=== PATIENT | female | born 1985 | race Hispanic/Latino ===

== ENCOUNTER 2021-01-16 16:10 | Observation (INO) | payer SELFPAY ==
--- NOTE | 2021-01-16 16:30 | OBADM ---
This patient, Hanane Avendano, admitted to the OB room [facility] Post [facility] for observation. Patient/family oriented to hospital policies and general routines including ID bracelet, bed and alarms, visiting hours, pain management, procedures, bathroom and other care routines, personal items, smoking policy, room service/diet, and visiting hours. Patient/Family are encouraged to report perceived risks to care and to ask questions if they do not understand what they are told or what they should do.
[2021-01-16 17:25] LABS: Hemoglobin 12.6 g/dL (12.0-15.0); Mean Corpuscular HGB Conc 33.2 g/dl (32-36); Mean Corpuscular Hemoglobin 29.5 pg (26-34); Platelet Count Result 289 k/mm3 (150-375); Red Blood Count 4.27 M/mm3 (4.2-5.4); Red Cell Distribution Width 11.9 % (11.5-14.5); White Blood Count 11.1 K/mm3 (4.5-10.0)
[2021-01-16 17:39] LABS: Alanine Aminotransferase 173 U/L (4-35); Albumin Level 4.3 g/dL (3.5-5.1); Alkaline Phosphatase 105 U/L (38-126); Anion Gap 15 mmol/L (8-16); Aspartate Amino Transferase 88 U/L (14-36); Blood Urea Nitrogen 12 mg/dL (7-17); Calcium 9.3 mg/dL (8.4-10.2); Carbon Dioxide 16 mmol/L (22-30); Chloride 107 mmol/L (98-107); Estimated Glomerular Filt Rate > 60; Glucose 73 mg/dL (65-105); Potassium 4.3 mmol/L (3.4-5.0); Sodium 138 mmol/L (137-145)
[2021-01-16] MEDS: DEXTROSE 5%/LACTATED RINGERS 1,000 ML 999 ML IV CONT ×4 (17:45→21:03)
[2021-01-16 17:46] VITALS: BP 98/58; PULSE 60
[2021-01-16] MEDS: ONDANSETRON INJ 4 MG/2 ML VIAL IV PUSH ×2 (17:46→23:41)
[2021-01-16] MEDS: FAMOTIDINE 20 MG/2 ML VIAL IV PUSH (17:46)
[2021-01-16 18:17] VITALS: BP 89/40; PULSE 127; PULSE 58; PULSE 63; O2SAT 85; O2SAT 91
[2021-01-16 18:18] VITALS: BP 95/52; PULSE 60
[2021-01-16 19:04] VITALS: PULSE 62; O2SAT 98
[2021-01-16 19:16] VITALS: RESP 16; TEMP 36.6
[2021-01-16 20:01] VITALS: BMI 27.3
[2021-01-16] MEDS: METOCLOPRAMIDE HCL INJ 10 MG/2 ML VIAL IV PUSH (22:00)
[2021-01-16] MEDS: DEXTROSE 5%/LACTATED RINGERS 1,000 ML 125 ML IV CONT (22:28)
[2021-01-17 06:38] VITALS: BP 79/42; PULSE 57
[2021-01-17] MEDS: DEXTROSE 5%/LACTATED RINGERS 1,000 ML 125 ML IV CONT (06:39)
[2021-01-17] MEDS: FAMOTIDINE 20 MG/2 ML VIAL IV PUSH (06:42)
[2021-01-17 06:45] VITALS: BP 81/43; PULSE 55; TEMP 36.6
[2021-01-17] MEDS: METOCLOPRAMIDE HCL INJ 10 MG/2 ML VIAL IV PUSH (06:45)
--- NOTE | 2021-01-17 06:45 | PC.NURSE ---
Pt has had some juice and bite size cookies.
--- NOTE | 2021-01-17 08:55 | PC.NURSE ---
Dr. Donovan at bedside. Assessment performed. Plan of care discussed with patient. Discharge orders received.
--- NOTE | 2021-01-17 08:58 | PC.NURSE ---
Dr. Donovan has been in to see pt and discharge orders received.
--- NOTE | 2021-01-17 08:59 | PM.OBTRLD ---
OB - Triage/Final Diagnosis Visit Information Date of evaluation: 01/16/21 Comments/Additional reasons for admission: I have assessed the risk for this patient, Hanane Avendano, and determined that she would benefit from observation care. 35-year-old sent in for hyperemesis gravidarum IV fluids antiemetic therapy Evaluation Laboratory results: Laboratory Tests 01/16/21 01/16/21 17:20 17:20 WBC 11.1 H RBC 4.27 Hgb 12.6 Hct 38.0 MCV 89.0 MCH 29.5 MCHC 33.2 RDW 11.9 Plt Count 289 MPV 10.0 Sodium 138 Potassium 4.3 Chloride 107 Carbon Dioxide 16 L Anion Gap 15 BUN 12 Creatinine 0.50 L Estim Creat Clear Calc Not Reportable Estimated GFR > 60 Glucose 73 Calcium 9.3 Total Bilirubin 1.0 AST 88 H ALT 173 H Alkaline Phosphatase 105 Total Protein 8.0 Albumin 4.3 Vital signs: Vital Signs - 24 hr 01/16/21 17:46 01/16/21 18:17 01/16/21 18:18 Temperature Pulse Rate 60 63 60 Respiratory Rate Blood Pressure 98/58 L 89/40 L 95/52 L Pulse Oximetry 91 01/16/21 19:04 01/16/21 19:16 01/17/21 06:38 Temperature 97.9 F Pulse Rate 62 57 L Respiratory Rate 16 Blood Pressure 79/42 L Pulse Oximetry 98 01/17/21 06:45 Temperature Pulse Rate 55 L Respiratory Rate Blood Pressure 81/43 L Pulse Oximetry Final Diagnosis (1) Hyperemesis gravidarum: Code(s): O21.0 - Mild hyperemesis gravidarum Status: Acute
--- NOTE | 2021-01-17 09:05 | PC.NURSE ---
Discharge instructions reviewed with patient and , patient and state understanding of instructions.
== END 2021-01-17 09:12 | disposition home or self-care (01) ==
PROVIDERS: Admitting Provider Obstetrics & Gynecology; Visit Provider Obstetrics & Gynecology
DX: O21.0 Mild hyperemesis gravidarum (principal); Z3A.01 Less than 8 weeks gestation of pregnancy
CPT/HCPCS: 36415; 80053; 85027; 96361; 96374; 96375; 96376; G0378; G0379; J2405; J2765; J7121

== ENCOUNTER 2021-01-24 16:36 | Observation (INO) | payer SELFPAY ==
[2021-01-24] MEDS: METOCLOPRAMIDE HCL INJ 10 MG/2 ML VIAL IV PUSH (17:29)
[2021-01-24] MEDS: DEXTROSE 5%/LACTATED RINGERS 1,000 ML 999 ML IV CONT (17:30)
[2021-01-24] MEDS: SCOPOLAMINE 1.5 MG PATCH TRANSDERM (17:31)
[2021-01-24 17:43] VITALS: BP 114/67; PULSE 80
[2021-01-24 17:45] VITALS: BP 120/73; PULSE 76
[2021-01-24 18:03] VITALS: BMI 27.5
--- NOTE | 2021-01-24 18:11 | OBADM ---
This patient, Hanane Avendano, admitted to the OB room [facility] for observation. Patient/family oriented to hospital policies and general routines including ID bracelet, bed and alarms, visiting hours, pain management, procedures, bathroom and other care routines, personal items, smoking policy, room service/diet, and visiting hours. Patient/Family are encouraged to report perceived risks to care and to ask questions if they do not understand what they are told or what they should do.
--- NOTE | 2021-01-24 18:35 | PC.NURSE ---
Pt denies nausea and vomiting at this time. pt stating she wants to go home. pt drinking and tolerating water at this time.
[2021-01-24] MEDS: FAMOTIDINE 20 MG/2 ML VIAL IV PUSH (18:46)
--- NOTE | 2021-01-29 18:23 | PM.OBTRLD ---
OB - Triage/Final Diagnosis Visit Information Comments/Additional reasons for admission: I have assessed the risk for this patient, Hanane Martinez Juan Alberto, and determined that she would benefit from observation care. Final Diagnosis (1) Hyperemesis gravidarum: Code(s): O21.0 - Mild hyperemesis gravidarum Status: Acute
== END 2021-01-24 19:05 | disposition home or self-care (01) ==
PROVIDERS: Admitting Provider Obstetrics & Gynecology; Visit Provider Obstetrics & Gynecology
DX: O21.0 Mild hyperemesis gravidarum (principal); Z3A.08 8 weeks gestation of pregnancy
CPT/HCPCS: 96361; 96374; 96375; A9270; G0378; G0379; J2765; J7121

== ENCOUNTER 2021-02-18 02:31 | Emergency (ER) | payer MEDICAID, SELFPAY ==
[2021-02-18 02:43] VITALS: BP 101/69; PULSE 92; RESP 20; TEMP 36.8; O2SAT 100
[2021-02-18 04:01] LABS: Basophils Percent Auto 0.3 % (0.2-1.2); Hematocrit 36.8 % (37.0-47.0); Hemoglobin 12.4 g/dL (12.0-15.0); Immature Granulocyte Absolute 0.06 K/mm3 (0.00-0.031); Immature Granulocyte Percent A 0.4 % (0-0.5); Lymphocytes Absolute Auto 0.71 K/mm3 (0.9-3.2); Lymphocytes Percent Auto 4.6 % (18.3-44.2); Mean Corpuscular HGB Conc 33.7 g/dl (32-36); Mean Corpuscular Volume 86.2 fl (80-100); Mean Platelet Volume 11.1 fl (7.4-10.4); Monocytes Absolute Auto 0.4 K/mm3 (0.1-0.6); Monocytes Percent Auto 2.7 % (2.6-8.5); Neutrophils Absolute Auto 14.1 K/mm3 (1.3-6.7); Platelet Count Result 314 k/mm3 (150-375); Red Blood Count 4.27 M/mm3 (4.2-5.4); Red Cell Distribution Width 11.8 % (11.5-14.5); White Blood Count 15.3 K/mm3 (4.5-10.0)
[2021-02-18 04:11] LABS: Alanine Aminotransferase 567 U/L (4-35); Albumin Level 4.3 g/dL (3.5-5.1); Alkaline Phosphatase 200 U/L (38-126); Anion Gap 13 mmol/L (8-16); Aspartate Amino Transferase 291 U/L (14-36); Bilirubin,Total 1.1 mg/dL (0.2-1.3); Blood Urea Nitrogen 9 mg/dL (7-17); Calcium 9.9 mg/dL (8.4-10.2); Carbon Dioxide 20 mmol/L (22-30); Chloride 102 mmol/L (98-107); Estimated Glomerular Filt Rate > 60; Glucose 96 mg/dL (65-105); Lipase 85 U/L (23-300); Potassium 3.2 mmol/L (3.4-5.0); Sodium 135 mmol/L (137-145)
[2021-02-18 04:15] LABS: Add Urine Microscopic? YES; Appearance Urine Cloudy (Clear); Bilirubin Urine 1+ (Negative); Blood Urine Negative (Negative); Color Urine Amber (Yellow); Glucose Urine UA Negative (Negative); Ketones Urine 2+ mg/dL (Negative); Leukocyte Esterase Ur Trace LEU/UL (Negative); Mucus Urine Moderate /lpf; Nitrate Urine Negative (Negative); Protein Urine 1+ mg/dL (Negative); RBC Urine 0-2 /hpf (0-2); Specific Grav Ur 1.029 (1.001-1.035); Squamous Epithelial Cell Urine Moderate /hpf (Few)
--- NOTE | 2021-02-18 05:21 | ED.PREGNANCY ---
HPI - General Chief complaint: Abdominal Pain Stated complaint: Constipation Time Seen by Provider: 02/18/21 03:56 Source: patient Mode of arrival: ambulatory Limitations: language barrier (azerbaijani speaking, I used [employer] video microsoft systems engineer) History of Present Illness HPI Narrative: This is a female approximately 12 weeks GA with twins who presents for evaluation of rectal pain and constipation. She states she has not had a bowel movement in 1.5 months. She is passing flatus. She states tonight she felt the urge to have bowel movement but she could not go. She reports she developed severe rectal pain and lower abdominal pain. She took fleets enema prior to coming but she states she did not have bowel movement. She states she was given medication in ER so her pain has improved to 2/10. She also states she has been having nausea and vomiting durring this . She takes zofran at home and she reports that helps some. She was last evaluated in ER 2 weeks ago. She denies fever, chills, dysuria, hematuria, vaginal bleeding. She also notes she feels lumps on her rectum. Her OBGYN are located at [facility] Related Data Allergies Allergy/AdvReac Type Severity Reaction Status Date / Time No Known Allergies Allergy Verified 02/18/21 07:07 Review of Systems Review of Systems: All systems reviewed & are unremarkable except as noted in HPI and below Constitutional: Constitutional: Denies chills and Denies fever(s) Respiratory: Respiratory: Denies cough and Denies dyspnea Gastrointestinal: Gastrointestinal: Reports abdominal pain, Reports constipation, Reports nausea and Reports vomiting [facility] Past Medical History Medical History (Updated 02/18/21 @ 07:07 by Liseth Dunne MD) Patient denies medical problems Surgical History Surgical History (Updated 02/18/21 @ 06:57 by Liseth Dunne MD) No pertinent past surgical history Social History Social History (Updated 02/18/21 @ 06:57 by Liseth Dunne MD) Smoking status: Never smoker Gender identity (if verbalized by the patient): Female Exam Const: General: no acute distress and alert Orientation/consciousness: patient oriented x3 Eyes: Pupils: Equal, round and reactive pupils present EOM: EOMs intact bilaterally Resp: Effort & Inspection: normal respiratory effort and no retractions Auscultation: clear to auscultation bilaterally Cardio: Rate: regular rate Rhythm: regular rhythm Heart sounds: no murmurs GI: GI Palp: Yes Soft to palpation, Yes Tenderness to palpation present (GI) (suprapubic , bilateral lower quadrant), No Guarding due to palpation present (GI) and No Rigid due to palpation Auscultation: normal bowel sounds Other: hard stool in vault, external hemorrhoids present, no thrombosed Back/Spine/Pelvis: Back: no CVA tenderness Skin: General skin exam: normal color Rashes: no rashes Neuro: General: patient oriented x3, moves all extremities and CN's II-XI intact bilaterally Psych: Mental Status: mental status grossly normal Affect: normal affect Course Reevaluation(s) Reevaluation #1: Patient was able to have large bowel movement after enema. She states she feels better. She denies any abdominal pain. She no longer has abdominal tenderness on her repeat abdominal exam. Bedside US shows twin gestation with good movement HRs in 160s for both. I spoke with patient using microsoft systems engineer. She states she has appointment at [place] on Wednesday. I discussed abnormal liver and she will refrain from tylenol. Date: 02/18/21 Time: 06:59 Consultations Consultation #1: I spoke with chief resident OB carton and can supply supervisor at [facility]. She reports patient found to have transaminitis during last visit at [facility] . They thought it was due to her vomiting. She had negative viral hepatic panel. She states they will follow up with as outpatient. Patient is allow to take miralax and colace Date: 02/18/21 Time: 05:30
[2021-02-18] MEDS: ONDANSETRON INJ 4 MG/2 ML VIAL IV PUSH (05:23)
[2021-02-18] MEDS: DEXTROSE 5%/LACTATED RINGERS 1,000 ML 1000 ML IV CONT (05:23)
[2021-02-18 07:02] VITALS: BP 90/63; PULSE 94; RESP 20; O2SAT 99
[2021-02-18] MEDS: LACTATED RINGERS 1,000 ML 999 ML IV CONT (07:13)
[2021-02-18 07:32] VITALS: BP 98/61; PULSE 71; RESP 12; O2SAT 99
[2021-02-18 07:55] VITALS: BP 100/66; PULSE 81; RESP 14; O2SAT 98
== END 2021-02-18 07:58 | disposition home or self-care (01) ==
PROVIDERS: Emergency Provider General Practice
DX: O26.891 Other specified pregnancy related conditions, first trimester (principal); R74.01 Elevation of levels of liver transaminase levels; Z3A.12 12 weeks gestation of pregnancy; E86.0 Dehydration; O99.281 Endocrine, nutritional and metabolic diseases complicating pregnancy, first trimester; O22.41 Hemorrhoids in pregnancy, first trimester
CPT/HCPCS: 36415; 80053; 81001; 81025; 83690; 85025; 87086; 87088; 96361; 96365; 96366; 96375; 99284; J0131; J2405; J7120; J7121

== ENCOUNTER 2023-07-22 11:51 | Emergency (ER) | payer OTHER, SELFPAY ==
[2023-07-22 11:54] VITALS: BP 119/83; PULSE 75; RESP 18; TEMP 36.8; O2SAT 98
[2023-07-22 13:01] VITALS: BP 121/85; PULSE 65; RESP 16; O2SAT 99
--- NOTE | 2023-07-22 13:10 | ED.EYEPROB ---
HPI - Eye Problem General Chief complaint: Eye Problems Stated complaint: eye Time Seen by Provider: 07/22/23 13:10 Source: patient Mode of arrival: ambulatory Limitations: language barrier History of Present Illness HPI Narrative: Patient is a 38 year-old female past medical history as noted below who presents emergency department today hematuria with steady gait for evaluation of right eye pain/redness / drainage, blurriness and pain is worse with any light. started 2 days ago. Denies any recent eye injury or known foreign body. Denies fever or chills. States that it is giving her headache all over. Denies any rash. Does not wear contacts. Use of requirements engineer services used during this discussion is patient is fully Guamanian-speaking. denies nausea, vomiting, upper respiratory symptoms. Related Data Home Medications Medication Instructions Recorded Confirmed aspirin 81 mg tablet,delayed 81 mg PO DAILY 01/24/21 01/24/21 release metoclopramide HCl 5 mg tablet 5 mg PO PRN 01/24/21 01/24/21 ondansetron HCl 4 mg tablet 4 mg PO PRN 01/24/21 01/24/21 sertraline 50 mg tablet 50 mg PO DAILY 01/24/21 01/24/21 Allergies Allergy/AdvReac Type Severity Reaction Status Date / Time No Known Allergies Allergy Verified 07/22/23 13:04 Review of Systems Review of Systems: CONSTITUTIONAL: Denies fever, chills, or sweats. EYES: +right eye redness, drainage, blurriness, pain swelling. denies injury to eye. ENT: Denies rhinorrhea, congestion, sore throat, or otalgia. CARDIOVASCULAR: Denies chest pain, palpitations, or edema. RESPIRATORY: Denies cough or dyspnea. SKIN: Denies rash or itching. MUSCULOSKELETAL: Denies back pain, joint pain, or myalgia. NEUROLOGIC: +headache. denies numbness, or weakness. PSYCHIATRIC: Denies anxiety or depression. All systems reviewed & are unremarkable except as noted in HPI and below PMFSH Past Medical History Medical History Patient denies medical problems Surgical History Surgical History No pertinent past surgical history Social History Social History Smoking status: Never smoker Gender identity (if verbalized by the patient): Female Exam Narrative: GENERAL: Well-appearing, well-nourished, patient appears mildly uncomfortable. HEAD: Normocephalic, atraumatic. EYES: injected right conjunctiva/sclera with clear drainage. painter lamp reveals corneal abrasion with no corneal ulcer or fluorescein uptake. no foreign body noted. mild upper eyelid swelling. no rash or periorbital edema noted. EOMI.PERRLA ENT: Nares clear, no rhinorrhea or epistaxis. Mucous membranes moist. NECK: Supple. CHEST: respirations regular and non-labored, no acute distress noted. HEART: Regular rate and rhythm. EXTREMITIES: Normal range of motion. No edema. SKIN: Warm, dry, no rash. NEURO: No focal deficits. Alert and oriented x3. CN II-XII grossly intact PSYCH: mildly anxious. Course Vital Signs Vital signs: Vital Signs Temperature 98.3 F 07/22/23 11:54 Pulse Rate 75 07/22/23 11:54 Respiratory Rate 18 07/22/23 11:54 Blood Pressure 119/83 07/22/23 11:54 Pulse Oximetry 98 07/22/23 11:54 Oxygen Delivery Room Air 07/22/23 11:54 Temperature 98.3 F 07/22/23 11:54 Pulse Rate 61 07/22/23 14:23 Respiratory Rate 16 07/22/23 14:23 Blood Pressure 115/77 07/22/23 14:23 Pulse Oximetry 100 07/22/23 14:23 Oxygen Delivery Room Air 07/22/23 11:54 MDM - Eye Problem MDM Narrative Medical decision making narrative: Patient is a 38-year-old who presents for right eye redness, pain, drainage. Findings consistent with conjunctivitis as well as mild corneal abrasion. No corneal ulcer noted. Discussed treatment with antibiotic drops, other supportive care measures and appropriate follow-up with ophthal
[2023-07-22 14:23] VITALS: BP 115/77; PULSE 61; RESP 16; O2SAT 100
[2023-07-22] MEDS: KETOROLAC 30 MG/ML VIAL (*BKC) IM (16:08)
== END 2023-07-22 16:16 | disposition home or self-care (01) ==
PROVIDERS: Emergency Provider Nurse Practitioner
DX: S05.01XA Injury of conjunctiva and corneal abrasion without foreign body, right eye, initial encounter (principal); H10.89 Other conjunctivitis; Z79.82 Long term (current) use of aspirin; X58.XXXA Exposure to other specified factors, initial encounter
CPT/HCPCS: 96372; 99283; A9270; J1885